=== PATIENT | female | born 1960 | race Caucasian/White ===

== ENCOUNTER → 2018-07-07 | Outpatient (CLI) | payer BC ==
[~2018-07-07] MED LIST: ANTI-DEPRESSANT; CALCIUM; FLEXERIL PO; MULTIVITAMINS1 EAC7 PO; OIL OF OREGAN1500 MG PO; PERCOCET 5-3251 EACH PO; PREDNISONE 20 M20 MG PO; PROTONIX40 MG PO; [UNRECOGNIZED DRUG - OTHER]; [UNRECOGNIZED DRUG - OTHER]
--- NOTE | ~2018-07-07 | EEG ---
[facility] [place] [address] ELECTROENCEPHALOGRAM Name: JENNIFER STALLINGS Room #: [facility]..#: [id number] ������������������ Admission: 07/07/18 ������������������ Attend Phys: Derrlel Motta MD Discharge: ������������������ Date of : 56 Report #: [id number] ����������������������������������������������������������������� [id number] THIS REPORT FOR: //name// [facility] DATE OF SERVICE: 07/07/2018 This patient is being evaluated for dizziness. EEG was done by placing the electrode by standard 10-20 system of electrode placement. Both referential and sequential montages were used for recording. Background activity in this patient's EEG is about 11 Hz and 30 microvolt. It is a symmetrical activity. The patient became drowsy that is associated with bilateral slowing. Photic stimulation is unremarkable. Throughout the record, no active epileptiform activity was noticed. IMPRESSION: This patient's EEG is intermixed with theta range slowing on both sides, but no active epileptiform activity was noticed. Thank you very much for this referral. ���������������������������������������� ���������������������������������������� By: ��������������������������������������������� [id number] Derrell Motta MD /nt
== END ==
LOC: MRI 11:38
DX: R90.82 White matter disease, unspecified (principal); F41.9 Anxiety disorder, unspecified; Z88.1 Allergy status to other antibiotic agents; Z88.8 Allergy status to other drugs, medicaments and biological substances

== ENCOUNTER → 2019-03-15 | Outpatient (CLI) | payer BC, OTHER | LOC: RAD 09:57 | DX: J44.9 Chronic obstructive pulmonary disease, unspecified (principal) ==